=== PATIENT | female | born 2000 | race American Indian/Alaskan Native ===

== ENCOUNTER 2018-11-11 11:43 | Emergency (ER) | payer OTHER ==
[2018-11-11 11:54] VITALS: BP 146/101
--- NOTE | 2018-11-11 11:58 | Emergency Department Report ---
Blank Doc - Documentation Documentation: This is a 18-year-old female that presents with vaginal discharged and itching. also has dental pain. This initial assessment/diagnostic orders/clinical plan/treatment(s) is/are subject to change based on patient's health status, clinical progression and re- assessment by fellow clinical providers in the ED. Further treatment and workup at subsequent clinical providers discretion. Patient/guardians urged not to elope from the ED as their condition may be serious if not clinically assessed and managed. Initial orders include: 1- Patient sent to [facility] for further evaluation and treatment 2-wet prep/GC 3- UA 4- pelvic exam to be done
[2018-11-11 13:18] LABS: Bilirubin,Urine NEG (Negative); Blood,Urine NEG (Negative); Color,Urine Yellow (Yellow); Mucus,Urine FEW /HPF; Protein,Urine <15 mg/dL mg/dL (Negative); Urobilinogen,Urine < 2.0 mg/dL (<2.0)
[2018-11-11 13:25] LABS: HCG Qualitative,Urine Negative (Negative)
[2018-11-11] MEDS ORDERED: IBUPROFEN PO ONE (14:38)
--- NOTE | 2018-11-11 14:40 | Emergency Department Report ---
ED General Adult HPI - General Chief complaint: Urogenital-Female Stated complaint: ABCESS/YEAST INFECTION Time Seen by Provider: 11/11/18 11:56 Source: patient Mode of arrival: Ambulatory Limitations: No Limitations - History of Present Illness Initial comments: 18-year-old female comes in for complaint of vaginal discharge in to take on the right side. Patient reports that the toothache is been for 2 days and sore throat 1 week and vaginal discharge one week. Patient reports that she was diagnosed with Trichomonas and bacterial infection which she was out of time. She reports that she was not notified before she took her medication and had intercourse back with her boyfriend before knowing that she had an STD. Patient's concerned that she may have another Trichomonas infection. Patient reports that she is on NExepl[employer] control. - Related Data Previous Rx's Medication Instructions Recorded Last Taken Type Clindamycin [Clindamycin CAP] 300 mg PO BID #14 cap 11/11/18 Unknown Rx Ibuprofen [Motrin 600 MG tab] 600 mg PO Q8H PRN #30 tablet 11/11/18 Unknown Rx Allergies Allergy/AdvReac Type Severity Reaction Status Date / Time No Known Allergies Allergy Unverified 11/11/18 11:48 ED Review of Systems ROS: Stated complaint: ABCESS/YEAST INFECTION Other details as noted in HPI ED Past Medical Hx - Past Medical History Previous Medical History?: No - Surgical History Past Surgical History?: No - Social History Smoking Status: Current Every Day Smoker Substance Use Type: Alcohol - Medications Home Medications: Home Medications Medication Instructions Recorded Confirmed Last Taken Type Clindamycin [Clindamycin CAP] 300 mg PO BID #14 cap 11/11/18 Unknown Rx Ibuprofen [Motrin 600 MG tab] 600 mg PO Q8H PRN #30 tablet 11/11/18 Unknown Rx ED Physical Exam - General Limitations: No Limitations ED Course Vital Signs 11/11/18 11:52 Temperature 98.2 F Pulse Rate 85 Respiratory 20 Rate Blood Pressure 146/101 O2 Sat by Pulse 99 Oximetry Critical care attestation.: If time is entered above; I have spent that time in minutes in the direct care of this critically ill patient, excluding procedure time. ED Disposition Clinical Impression: Tooth ache, BV (bacterial vaginosis) Disposition: DC-01 TO HOME OR SELFCARE Is pt being admited?: No Does the pt Need Aspirin: No Condition: Stable Instructions: Bacterial Vaginosis (ED), Toothache (ED), Safe Sex (ED) Additional Instructions: Complete antibiotics as prescribed. Follow up with a dentist and [employer] provider. Pain medication as needed. These refrain from intercourse until completion of medication. Please be sure to use condoms with intercourse. Prescriptions: Clindamycin [Clindamycin CAP] 300 mg PO BID #14 cap Ibuprofen [Motrin 600 MG tab] 600 mg PO Q8H PRN #30 tablet PRN Reason: Pain , Severe (7-10) Referrals: [facility] [Outside] - 3-5 Days [facility] [Outside] - 3-5 Days [facility] [Outside] - 3-5 Days [facility] [Outside] - 3-5 Days Forms: STI Treatment and Prevention
== END 2018-11-11 14:44 | disposition home or self-care (01) ==
LOC: ED 11:43
DX: K08.89 Other specified disorders of teeth and supporting structures (principal); N76.0 Acute vaginitis; B96.89 Other specified bacterial agents as the cause of diseases classified elsewhere; F17.200 Nicotine dependence, unspecified, uncomplicated
CPT/HCPCS: 81001; 81025; 87210; 87591

== ENCOUNTER 2018-11-24 12:51 | Emergency (ER) | payer SELFPAY ==
--- NOTE | 2018-11-24 13:14 | Event Note ---
ED Screening Note Date of service: 11/24/18 Time: 13:13 ED Screening Note: This is a 18 y.o. F. that presents to the ER with This initial assessment/diagnostic orders/clinical plan/treatment(s) is/are subject to change based on patients health status, clinical progression and re- assessment by fellow clinical providers in the ED. Further treatment and workup at subsequent clinical providers discretion. Patient/guardian urged not to elope from the ED as their condition may be serious if not clinically assessed and managed. Initial orders include:
[2018-11-24 13:17] VITALS: BP 139/84
--- NOTE | 2018-11-24 13:17 | Emergency Department Report ---
Chief Complaint: Pain General Stated Complaint: YEAST INFECTION Time Seen by Provider: 11/24/18 13:13 - HPI History of Present Illness: This is a 18 y.o. F. that presents to the ER with vaginal irritation and discharge. Patient states she was seen in this ER 2 weeks ago and treated for bacterial vaginitis. Patient states she completed medication and continue to have itching and vaginal discharge. - ROS Review of Systems: : Vaginal discharge and pruritus - Exam Vital Signs: Vital Signs 11/24/18 13:14 Temperature 98.3 F Pulse Rate 78 Respiratory 15 Rate Blood Pressure 139/84 [Left] O2 Sat by Pulse 97 Oximetry Physical Exam: GENERAL: The patient is well looking, in no acute distress. CHEST: Air entry is adequate bilaterally with no rhonchi, and crackles. HEART: Sounds 1 and 2 are heard and are normal. Regular rate and rhythm, no tachycardic, murmurs, gallops, or rubs. SKIN: No rash EXTREMITIES: Without edema, cyanosis, or clubbing. MSE screening note: Focused history and physical exam performed. Due to findings the following was ordered: ED Medical Decision Making - Medical Decision Making This is a 18-year-old -[place] female who presents to the emergency room for persistent vaginal discharge. Patient was examined by me. Vitals are stable and in no acute distress. No labs ordered. Patient seen in his emergency room 2 weeks ago and treated for bacterial vaginitis. Wet prep was also positive for yeast on visit. Reviewed culture with negative gonorrhea and chlamydia. Start diflucan for yeast infection. Discharged home in stable condition. Discussed prevention options. F/U with PCP or Health Department. ED Disposition for MSE Clinical Impression: Vaginal discharge, Candidiasis of vulva and vagina Disposition: DC-01 TO HOME OR SELFCARE Is pt being admited?: No Does the pt Need Aspirin: No Condition: Stable Instructions: Vulvovaginal Candidiasis (ED) Additional Instructions: Take medication as prescribed. Follow up with a disassembler or health department if symptoms return. Prescriptions: Fluconazole [Diflucan TAB] 150 mg PO ONCE #1 tablet Referrals: THIAGO BLAKE MD [Primary Care Provider] - 3-5 Days [facility] [Outside] - 3-5 Days [facility] [Outside] - 3-5 Days [facility] [Outside] - 3-5 Days Forms: Work/School Release Form(ED) Time of Disposition: 13:37
== END 2018-11-24 13:48 | disposition home or self-care (01) ==
LOC: ED 12:51
DX: B37.3 Candidiasis of vulva and vagina (principal)